=== PATIENT | male | born 1960 | race Caucasian/White ===

== ENCOUNTER 2017-05-12 22:43 | Emergency (ER) | payer BC ==
[~2017-05-12] VITALS: Ht 180.3 cm; Wt 106.4 kg
[2017-05-12 23:00] VITALS: BP 160/87; PULSE 66; RESP 16; TEMP 97.8; O2SAT 96
--- NOTE | 2017-05-12 23:11 | PD ---
HPI Chief Complaint: Edema Time Seen by Provider: 23:10 Travel History International Travel<30 days: No Contact w/Intl Traveler<30days: No Traveled to known affect area: No History of Present Illness HPI 56-year-old male came to the emergency room with history of some tongue swelling that he noticed this afternoon. Patient has history of angioedema which was in the form of swelling of his tongue and lips about 4-6 weeks ago. Patient was in the emergency room at that time and was stopped from taking lisinopril and was switched to losartan. Patient has been taking losartan since then and the last dose was this morning. Since his symptoms today felt similar to the ones 4-6 weeks ago patient decided to take [id number] Benadryl. He took 2 Benadryl tabs at noon and 2 more about an hour ago. He feels that the swelling has stopped but he felt some shortness of breath and hence decided to come to the emergency room. Vital signs are stable. Patient does not appear to be in any respiratory distress or otherwise. [facility] Past Medical History Narrative Medical List of his past medical, surgical, social and family history is reviewed from the nursing note. Social History Tobacco Use: No Allergies-Medications (Allergen,Severity, Reaction): Coded Allergies: losartan (Verified Allergy, Unknown, Edema, 05/13/17) SWOLLEN LIP Comments No known drug allergies. Reported Meds & Prescriptions Reported Meds & Active Scripts Active Prednisone 20 Mg Tab 20 Mg PO BID 3 Days Metoprolol Tartrate 25 Mg Tab 25 Mg PO BID Reported Aspir-81 (Aspirin) 81 Mg Tabdr 81 Mg PO DAILY Atorvastatin (Atorvastatin Calcium) 40 Mg Tab 40 Mg PO HS Glipizide 10 Mg Tab 10 Mg PO BIDAC Take 30 minutes before a meal Janumet (Sitagliptin-Metformin) 50-1,000 Mg Tab 1 Tab PO BID Losartan-Hydrochlorothiazide 50-12.5 Mg Tab 1 Tab PO DAILY Narrative Medication Waiting for the nurse to do the med reconciliation Review of Systems Except as stated in HPI: all other systems reviewed are Neg Physical Exam Narrative GENERAL: Awake, alert, no obvious distress SKIN: Focused skin assessment warm/dry. HEAD: Atraumatic. Normocephalic. EYES: Pupils equal and round. No scleral icterus. No injection or drainage. ENT: No nasal bleeding or discharge. Mucous membranes pink and moist. Tongue appears to be normal in shape and size. No signs of angioedema or early. No stridor NECK: Trachea midline. No JVD. CARDIOVASCULAR: Regular rate and rhythm. No murmur appreciated. RESPIRATORY: No accessory muscle use. Clear to auscultation. Breath sounds equal bilaterally. GASTROINTESTINAL: Abdomen soft, non-tender, nondistended. Hepatic and splenic margins not palpable. MUSCULOSKELETAL: No obvious deformities. No clubbing. No cyanosis. No edema. NEUROLOGICAL: Awake and alert. No obvious cranial nerve deficits. Motor grossly within normal limits. Normal speech. PSYCHIATRIC: Appropriate mood and affect; insight and judgment normal. Data Data Last Documented VS Orders Orders Prednisone (Deltasone) (05/12/17 23:30) Ed Discharge Order (05/12/17 23:35) [facility] Medical Decision Making Medical Screen Exam Complete: Yes Emergency Medical Condition: Yes Medical Record Reviewed: Yes Differential Diagnosis Anaphylactoid reaction Narrative Course 11:32 PM given the fact that patient has already taking adequate dose of Benadryl and no signs of angioedema currently I have decided to give him a dose of steroid and discharge him home. I did educate the patient about losartan being the same family of medication is lisinopril. I have asked him to stop taking the losartan and instead I will put him on metoprolol. He needs to follow-up with his primary care. Patient will be discharged home. Procedures EKG Prior to Arrival: No Diagnosis Primary Impression: Anaphylactoid reaction Qualified Codes: T78.2XXA - Anaphylactic shock, unspecified, initial encounter Referrals: Primary Care Physician Additional Instructions: Return to the ER if condition worsens or any other new concerns. Otherwise follow-up with your primary care. He should not be taking losartan anymore. Take the new medication as per the prescription direction. Continue taking the Benadryl every 6 hours for next 3 days. Med/Other Pt SpecificInfo: Prescription(s) given, Med Stopped (Losartan) Scripts Prednisone (Prednisone) 20 Mg Tab 20 MG PO BID for 3 Days, #6 TAB 0 Refills Prov: Bruno dEwards MD 05/12/17 Metoprolol Tartrate (Metoprolol Tartrate) 25 Mg Tab 25 MG PO BID, #60 TAB 0 Refills Prov: Bruno Edwards MD 05/12/17 Disposition: 01 DISCHARGE HOME Condition: Stable Bruno Edwards MD May 12, 2017 23:11
[2017-05-12] MEDS ORDERED: predniSONE 20 MG TAB PO ONE (23:30)
[2017-05-12] MEDS ORDERED: METO25TA3 PO (23:35)
[2017-05-12] MEDS ORDERED: PRED20 PO (23:35)
[2017-05-13] MEDS ORDERED: ATOR40TA16 PO (01:35)
[2017-05-13] MEDS ORDERED: GLIP10TA6 PO (01:35)
[2017-05-13] MEDS ORDERED: LOSA50TA2 PO (01:35)
[2017-05-13] MEDS ORDERED: JANU50TA8 PO (01:35)
[2017-05-13] MEDS ORDERED: ASPI81TA81 PO (01:35)
== END 2017-05-12 23:45 | disposition home or self-care (01) ==
LOC: PHED 22:43
DX: T88.6XXA Anaphylactic reaction due to adverse effect of correct drug or medicament properly administered, initial encounter (principal); R60.0 Localized edema; R06.02 Shortness of breath
CPT/HCPCS: 99283; J7512